=== PATIENT | female | born 1995 | race Caucasian/White ===

== ENCOUNTER 2016-09-30 20:25 | Emergency (ER) | payer MEDICAID, OTHER ==
[~2016-09-30] VITALS: Ht 160 cm; Wt 104.0 kg
[~2016-09-30 20:25] MED LIST: ALBU8.5H3 INH; CIPR500T4 PO; TRAM50TA2 PO
[2016-09-30 21:39] VITALS: Ht 160 cm; Wt 104.0 kg
[2016-09-30] MEDS ORDERED: ACETAMINOPHEN 325 MG TAB PO ONE (23:00)
[2016-09-30 23:06] LABS: URINE BLOOD (Dip) POC Negative (NEGATIVE)
[2016-10-01] MEDS ORDERED: MAG-19 PO
[2016-10-01 00:31] VITALS: BP 115/73; PULSE 86; RESP 18; TEMP 98.6
--- NOTE | 2016-10-01 03:19 | ERD ---
ER Documentation Chief Complaint Date/Time DATE: 10/01/16 TIME: 03:02 Chief Complaint Epigastric pain, left leg shaking, Nausea HPI Pleasant 21-year-old female presents to emergency room today for abdominal pain , nausea, and left leg shakiness. Patient reports abdominal pain started in epigastrium area and now is felt in lower quadrants, patient reports that her left leg started shaking involuntarily today. Patient has been seen by urgent care today diagnosed with GERD treated with Zantac. Patient reports that she is here for reevaluation because abdominal pain has changed in quality now feels crampy and tender. Also has changed in location now is in the lower quadrants, epigastric pain or heartburn not present at this time. Patient denies vomiting, dysuria, hematuria, fever or chills. Patient denies belching, flatulence, diarrhea or constipation. ROS All systems reviewed and are negative except as per history of present illness. Medications Home Meds Active Scripts Magaldrate/Simethicone* (Mylanta*) 355 Ml Susp, 30 ML PO QID Y for GASTROINTESTINAL UPSET, #1 BOTTLE Prov:NICK VILLALOBOS 10/01/16 Tramadol HCl (Tramadol HCl) 50 Mg Tab, 50 MG PO Q4 Y for PAIN, #10 TAB Prov:RICK ANDERSEN PA-C 01/17/15 Ciprofloxacin Hcl* (Ciprofloxacin Hcl*) 500 Mg Tablet, 500 MG PO BID for 7 Days , TAB Prov:RICK ANDERSEN PA-C 01/17/15 Reported Medications Albuterol Sulfate* (Proair HFA*) 8.5 Gm Hfa.aer.ad, 2 PUFF INH Q4H Y for WHEEZING AND SOB, INH 08/01/14 Allergies Allergies: Coded Allergies: No Known Allergies (Verified Allergy, Mild, 09/30/16) PMhx/Soc Medical and Surgical Hx: pt denies Medical Hx, pt denies Surgical Hx History of Surgery: No Anesthesia Reaction: No Hx Neurological Disorder: No Hx Respiratory Disorders: No Hx Cardiac Disorders: No Hx Psychiatric Problems: No Hx Miscellaneous Medical Probl: No Hx Alcohol Use: No Hx Substance Use: No Hx Tobacco Use: No Smoking Status: Never smoker Physical Exam Vitals Vital Signs Date Time Temp Pulse Resp B/P Pulse Ox O2 Delivery O2 Flow Rate FiO2 10/01/16 00:31 98.6 86 18 115/73 97 Room Air 09/30/16 21:39 100.5 122 20 140/93 97 Vitals stable, nursing notes reviewed, Fever reduction effective with Tylenol. Physical Exam Const: No acute distress Head: Atraumatic Eyes: Normal Conjunctiva ENT: Mucous membranes moist Neck: Resp: Clear to auscultation bilaterally Cardio: Regular rate and rhythm, no murmurs Abd: Abdomen symmetric, soft, epigastric tenderness, right upper quadrant tenderness, bilateral lower quadrant tenderness, negative Cox sign. negative CVA tenderness. Skin: Back: No flank tenderness Ext: Neur: Awake and alert Psych: Normal Mood and Affect Results 24 hrs Laboratory Tests Test 09/30/16 23:08 Bedside Urine Blood Negative Bedside Urine Glucose (UA) Negative Bedside Urine Ketones (LAB) Negative Bedside Urine Leukocyte Esterase (L Negative Bedside Urine Nitrite (LAB) Negative Bedside Urine Protein (LAB) Negative Bedside Urine pH (LAB) 5.5 Current Medications Medications (Trade) Dose Ordered Sig/Nicky Route PRN Reason Start Time Stop Time Status Last Admin Dose Admin Acetaminophen (Tylenol Tab) 650 mg ONCE ONCE PO 09/30/16 23:00 09/30/16 23:01 DC 09/30/16 23:11 Interpretation text UA hCG negative for evidence of Urinalysis negative for leukocytosis or nitrates, negative for RBCs. Normal urinalysis Procedures/MDM Pleasant 21-year-old female presents to emergency department for reevaluation of abdominal pain. Patient reports sudden onset of abdominal pain starting in her epigastric area today. Patient was seen and treated at urgent care for GERD symptoms. Patient concerned about infection because of change in symptoms. Urinalysis negative for evidence of infection fever treated with Tylenol. Urinary tract infection or pyelonephritis is not suspected. Abdomen is nonacute, biliary colic, pancreatitis, or cholelithiasis is not suspected. Patient is stable for discharge. Reports improvement of symptoms with Tylenol on reevaluation. I feel patient is a excellent candidate for outpatient therapy and should continue Zantac, prescription of Mylanta provided, continue [id number] Tylenol for generalized fever aches and pains. I have discussed results, and examination findings, and treatment plan with the patient prior to discharge, indication for emergent reevaluation discussed. Side effects of all medication discussed. Patient given opportunity to ask questions, comfort care discussed patient verbalizes understanding, agrees with plan of care.. Departure Diagnosis: Primary Impression: Abdominal pain Condition: Good Patient Instructions: Abdominal Pain Additional Instructions: Call your primary care doctor TOMORROW for an appointment during the next 1-2 days.See the doctor sooner or return here if your condition worsens before your appointment time. NICK VILLALOBOS Oct 01, 2016 03:13
== END 2016-10-01 00:31 | disposition home or self-care (01) ==
LOC: FTE 20:25
DX: R10.13 Epigastric pain (principal)
CPT/HCPCS: 81003; Z7502; Z7610; 99283

== ENCOUNTER 2017-08-07 08:25 | Emergency (ER) | payer OTHER ==
[~2017-08-07] VITALS: Ht 167.6 cm; Wt 105.4 kg
[~2017-08-07 08:25] MED LIST changes: +MAG-19 PO
[2017-08-07 08:32] VITALS: Ht 167.6 cm; Wt 105.4 kg
[2017-08-07] MEDS ORDERED: ACET/BUTAL/CAFF TAB PO ONE (09:30)
--- NOTE | 2017-08-07 10:13 | RADRPT ---
PROCEDURE: XR Chest. CLINICAL INDICATION: Chest pain, cough TECHNIQUE: AP Portable chest. COMPARISON: CR CHEST 08/01/2014 FINDINGS: The cardiomediastinal silhouette is normal. The aorta is normal. No focal consolidation, pleural eff usion or pneumothorax is seen. The osseous structures are intact. IMPRESSION: No radiographic evidence of acute cardiopulmonary disease. Physician Familia Date Time Electronically viewed and signed by Yamileth Israel Physician on 08/07/2017 10:12 CS/
[2017-08-07] MEDS ORDERED: IBUP-1542 PO (10:22)
--- NOTE | 2017-08-07 10:44 | ERD ---
ER Documentation Chief Complaint Chief Complaint HAS A HOFFMAN AND A STABBING SENSATION ON HER CHEST HPI Patient is a 22-year-old female presents ED for concerns of a headache and "stabbing sensation" in her chest. Patient states her headache started yesterday. Patient describes the pain to be in her bilateral temporal regions and radiating to the occipital portion of her head. Patient states she did take ibuprofen last night which did alleviate her headache however it has returned. She states her current headache is a 3 out of 10. Patient denies that this is a worse headache of her life. Patient denies any nausea, vomiting , blurry vision, phonophobia, photophobia, neck pain, neck stiffness, fever or chills. Patient also admits to left ear pain. Patient states 1 week ago she did have a cough. Patient states her cough is completely resolved at this time. Patient states this morning she woke up with chest pain. Patient describes pain to be in her anterior chest. Patient denies any radiation of pain. Patient denies any shortness of breath, left upper extremity pain, left upper extremity pain or loss of consciousness. Patient denies any abdominal pain. Her last menstrual period was on 07-23-17. Patient denies any unilateral leg swelling, or history of DVT/PE, recent travel, recent surgeries or OCP use. ROS All systems reviewed and are negative except as per history of present illness. Medications Home Meds Active Scripts Ibuprofen* (Motrin*) 600 Mg Tab, 600 MG PO Q6, #30 TAB Prov:VAMSI HUNTER PA-C 08/07/17 Magaldrate/Simethicone* (Mylanta*) 355 Ml Susp, 30 ML PO QID Y for GASTROINTESTINAL UPSET, #1 BOTTLE Prov:GRISELDANEILNICK 10/01/16 Tramadol HCl (Tramadol HCl) 50 Mg Tab, 50 MG PO Q4 Y for PAIN, #10 TAB Prov:RICK ANDERSEN PA-C 01/17/15 Ciprofloxacin Hcl* (Ciprofloxacin Hcl*) 500 Mg Tablet, 500 MG PO BID for 7 Days , TAB Prov:RICK ANDERSEN PA-C 01/17/15 Reported Medications Albuterol Sulfate* (Proair HFA*) 8.5 Gm Hfa.aer.ad, 2 PUFF INH Q4H Y for WHEEZING AND SOB, INH 08/01/14 Allergies Allergies: Coded Allergies: No Known Allergies (Verified Allergy, Mild, 09/30/16) PMhx/Soc History of Surgery: No Anesthesia Reaction: No Hx Neurological Disorder: No Hx Respiratory Disorders: No Hx Cardiac Disorders: No Hx Psychiatric Problems: No Hx Miscellaneous Medical Probl: No Hx Alcohol Use: No Hx Substance Use: No Hx Tobacco Use: No Physical Exam Vitals Vital Signs Date Time Temp Pulse Resp B/P Pulse Ox O2 Delivery O2 Flow Rate FiO2 08/07/17 08:32 97.4 70 18 140/88 98 Physical Exam GENERAL: Well-developed, well-nourished female. Appears in no acute distress. HEAD: Normocephalic, atraumatic. No deformities or ecchymosis. EYE: Pupils equal, round, and reactive to light. EOMs intact. No conjunctival erythema. No eye discharge. ENT: External ear without any masses or tenderness. Auditory canals clear bilaterally. TM visualized bilaterally, non-erythematous, non-bulging. Nasal mucosa pink with no discharge. Oropharynx is pink without any tonsillar erythema or exudates. No uvula deviation. No kissing tonsils. NECK: Supple. No meningismus. Normal ROM of the neck. LUNG: Clear to auscultation bilaterally. No rhonchi, wheezing, rales or coarse breath sounds. CHEST: Tender to palpation of the anterior chest wall. Pain is reproducible. HEART: Regular rate and rhythm. No murmurs, rubs or gallops. EXTREMITIES: Equal pulses bilaterally. No peripheral clubbing, cyanosis or edema. No unilateral leg swelling. NEUROLOGIC: Alert and oriented x3, cooperative. Mood and affect appropriate to situation. Cranial nerves II through XII are grossly intact. Normal speech. Motor exam: 5/5 strength in upper and lower extremities. Sensory exam: Sensation intact to light touch on all four extremities. Cerebellar function exam: No dysmetria on [id number] test. Steady gait. No pronator drift. SKIN: Normal color. Warm and dry. No rashes or lesions. Results 24 hrs Current Medications Medications (Trade) Dose Ordered Sig/Nicky Route PRN Reason Start Time Stop Time Status Last Admin Dose Admin Acetaminophen/ Butalbital/ Caffeine (Fioricet) 1 tab ONCE ONCE PO 08/07/17 09:30 08/07/17 09:31 DC 08/07/17 09:34 Procedures/MDM ED COURSE: The patient was stable throughout ED course. I kept the patient and/or family informed of laboratory and diagnostic imaging results throughout the ED course. EKG: Read by Dr. Patel, attending physician. EKG shows normal sinus rhythm at a rate of 69 bpm. No arrhythmias, acute ST elevations or T wave changes were noted. DIAGNOSTIC IMAGING: Read by radiologist. Patient: JOSE DUNACN : 1995 Age: 22 Sex: F MR #: [id number] DOS: 08/07/17 0919 Ordering MD: VAMSI HUNTER PA-C Location: [facility] Room/Bed: PROCEDURE: XR Chest. CLINICAL INDICATION: Chest pain, cough TECHNIQUE: AP Portable chest. COMPARISON: CR CHEST 08/01/2014 FINDINGS: The cardiomediastinal silhouette is normal. The aorta is normal. No focal consolidation, pleural effusion or pneumothorax is seen. The osseous structures are intact. IMPRESSION: No radiographic evidence of acute cardiopulmonary disease. Physician Familia Date Time Electronically viewed and signed by Physician Familia on 08/07/2017 10: 12 CS/ CC: VAMSI HUNTER PA-C PROCEDURES: None. MEDICATIONS GIVEN: Fioricet Patient tolerated medication well with no adverse reactions. Patient reported improvement in pain. MEDICAL DECISION MAKING: This is a 22-year-old female presents ED for concerns of a headache and pain in her chest. Patient does admit to having a cough approximately 1 week ago which is completely resolved at this time. Vital signs were reviewed. Patient was afebrile. Patient is not hypoxic. Patient denied any fevers, neck stiffness, visual changes or LOC. Full neurological exam was normal. Patient was given Fioricet for headache. Patient reported significant alleviation of her pain after receiving this medication. Patient's EKG showed normal sinus rhythm at a rate of 69 bpm. EKG was reviewed by ED attending. Chest x-ray was unremarkable. Patient's PERC score is 0. Low suspicion for PE. At this time, patient's presentation is most consistent with tension headache and chest wall pain. Patient's chest wall pain is likely due to recent coughing that she had. Low suspicion for intra-cranial hemorrhage, meningitis, temporal arteritis, intracranial mass, sinusitis, pneumonia, pneumothorax, pleural effusion, CHF, ACS, pericarditis, arrhythmia. Patient was nontoxic, [id number] prior to discharge. Patient was noted to be on her cell phone talking in the results waiting room without any signs of acute distress. PRESCRIPTIONS: Ibuprofen DISCHARGE: At this time, patient is stable for discharge and outpatient management. I have encouraged the patient to hydrate well. I have instructed the patient to follow- up with his/her primary care physician in 1-2 days. If symptoms persist, patient may need to see a specialist for further examinations and testing. I have instructed the patient to promptly return to the ER at any time for any new or worsening symptoms including increased increased pain, fever, nausea, vomiting, numbness, neck stiffness, visual changes, weakness or LOC. The patient and/or family expressed understanding of and agreement with this plan. All questions were answered. Home care instructions were provided. Patients blood pressure was elevated (>120/80) but appears stable without evidence of hypertensive emergency, hypertensive urgency or end-organ failure. I had discussion with the patient about the risks of hypertension. I have advised the patient to follow up with his/her primary care physician for outpatient monitoring and treatment for hypertension in 2-3 days. I have instructed the patient to return to the ER for any new or worsening symptoms including chest pain, shortness of breath, headache, blurred vision, confusion, nausea, vomiting or LOC. Disclaimer: Inadvertent spelling and grammatical errors are likely due to EHR/ dictation software use and do not reflect on the overall quality of patient care. Also, please note that the electronic time recorded on this note does not necessarily reflect the actual time of the patient encounter. Departure Diagnosis: Primary Impression: Headache Headache type: unspecified Headache chronicity pattern: unspecified pattern Intractability: not intractable Qualified Code: R51 - Nonintractable headache, unspecified chronicity pattern, unspecified headache type Additional Impression: Chest wall pain Condition: Stable Patient Instructions: Self-Care for Headaches, Chest Wall Pain, Costochondritis Additional Instructions: Call your primary care doctor TOMORROW for an appointment during the next 1-2 days.See the doctor sooner or return here if your condition worsens before your appointment time. VAMSI HUNTER PA-C Aug 07, 2017 10:44
== END 2017-08-07 10:58 | disposition home or self-care (01) ==
LOC: FTE 08:25
DX: R51 Headache (principal); R07.89 Other chest pain
CPT/HCPCS: 71010; Z7502; Z7610; 93005

== ENCOUNTER 2018-02-27 21:10 | Emergency (ER) | END 2018-02-28 00:08 | disposition home or self-care (01) ==

== ENCOUNTER 2018-08-03 18:55 | Emergency (ER) | payer OTHER ==
[~2018-08-03] VITALS: Ht 160 cm; Wt 110.0 kg
[~2018-08-03 18:55] MED LIST changes: -ALBU8.5H3 INH; +ALBU8.5H8 INH; +FLUT9.9S NASAL; +IBUP-1542 PO; +PHEN177S43 MT
[2018-08-03 19:06] VITALS: BP 141/84; PULSE 90; RESP 18; Ht 160 cm; Wt 110.0 kg
--- NOTE | 2018-08-03 21:39 | ERD ---
ER Documentation Chief Complaint Chief Complaint headache/lower back, abd pain x 1 week HPI 23-year-old female who presents emergency department with complaints of headache, lower back pain, mild suprapubic pain for about a week. LMP: Stated that it was July 20, 2018. A0. Denies that this is the worst headache of her life, head injury, loss of consciousness, dizziness, neck pain, neck stiffness, throat pain, difficulty swallowing, difficulty breathing lying flat, shoulder pain, chest pain, back pain, abdominal pain, nausea, vomiting, constipation, diarrhea, urinary symptoms, or possibility being , loss of bowel and bladder control, trauma, injury, falls, difficulty walking due to pain, numbness or tingling sensation, calf pain, recent travel, recent major surgery in the last 3 weeks, calf pain, recent long travel, recent exposure to any illness, recent antibiotic use in the last 3 months, fever, chills, seizures. Past medical history: Denies. Surgical history: Denies. Social: Denies smoking, use of alcoholic beverages, use of illegal drugs. ROS All systems reviewed and are negative except as per history of present illness. Medications Home Meds Active Scripts Benzonatate* (Tessalon Perle*) 100 Mg Capsule, 100 MG PO Q8H PRN for COUGH, #15 CAP Prov:PASINEZRUSTY F 08/03/18 Ibuprofen* (Motrin*) 800 Mg Tab, 800 MG PO Q6H PRN for PAIN AND OR ELEVATED TEMP, #30 TAB Prov:PASILAMARZENARUBYAR F 08/03/18 Amoxicillin/Potassium Clav (Amox-Clav 875-125 mg Tablet) 875-125 mg Tab, 1 TAB PO BID for 10 Days, #20 TAB Prov:PASILARUBY IVANAR F 08/03/18 Ibuprofen* (Motrin*) 600 Mg Tab, 600 MG PO Q6, #30 TAB Prov:BRITTANY PAULINO PA-C 02/27/18 Phenol* (Chloraseptic* [place]) 177 Ml [place].pump, 2 SPRAY MT Q2H PRN for SORE THROAT, #1 BOTTLE Prov:BRITTANY PAULINO PA-C 02/27/18 Fluticasone Propionate (Flonase Allergy Relief) 9.9 Ml [place].susp, 1 SPRAY NASAL BID, #1 BOTTLE TO EACH NOSTRIL Prov:BRITTANY PAULINO PA-C 02/27/18 Ibuprofen* (Motrin*) 600 Mg Tab, 600 MG PO Q6, #30 TAB Prov:VAMSI HUNTER PA-C 08/07/17 Magaldrate/Simethicone* (Mylanta*) 355 Ml Susp, 30 ML PO QID PRN for GASTROINTESTINAL UPSET, #1 BOTTLE Prov:GRISELDA,MELODY 10/01/16 Tramadol HCl (Tramadol HCl) 50 Mg Tab, 50 MG PO Q4 PRN for PAIN, #10 TAB Prov:RICK ANDERSEN PA-C 01/17/15 Ciprofloxacin Hcl* (Ciprofloxacin Hcl*) 500 Mg Tablet, 500 MG PO BID for 7 Days, TAB Prov:RICK ANDERSEN PA-C 01/17/15 Reported Medications Albuterol Sulfate* (Proair HFA*) 8.5 Gm Hfa.aer.ad, 2 PUFF INH Q4H PRN for WHEEZING AND SOB, INH 08/01/14 Allergies Allergies: Coded Allergies: No Known Allergies (Verified Allergy, Mild, 09/30/16) PMhx/Soc History of Surgery: No Anesthesia Reaction: No Hx Neurological Disorder: No Hx Respiratory Disorders: No Hx Cardiac Disorders: No Hx Psychiatric Problems: No Hx Miscellaneous Medical Probl: No Hx Alcohol Use: No Hx Substance Use: No Hx Tobacco Use: No Smoking Status: Never smoker Physical Exam Vitals Vital Signs Date Temp Pulse Resp B/P (MAP) Pulse Ox O2 O2 Flow FiO2 Time Delivery Rate 08/03/18 98.0 90 18 141/84 100 19:06 (103) Physical Exam Const: No acute distress Head: Atraumatic Eyes: Normal Conjunctiva ENT: Normal External Ears, Nose and Mouth. Bilateral ears: TM is erythematous. No bleeding. No discharge with no mastoid tenderness. Nose: Midline without deviation. There is mild maxillary sinus tenderness to palpation. Throat: Uvula is midline and nondisplaced. Tonsils are +2 without redness and without exudates. Tolerating secretions. Patent airway. Speaks full and clear sentences. Neck: Full range of motion. No meningismus. No nuchal rigidity. No signs of meningeal irritation. Resp: Clear to auscultation bilaterally Cardio: Regular rate and rhythm, no murmurs Abd: Soft, non tender, non distended. Normal bowel sounds Skin: No petechiae or rashes Back: No midline or flank tenderness Ext: No cyanosis, or edema Neur: Awake and alert. No neurological deficits. Psych: Normal Mood and Affect Results 24 hrs Laboratory Tests Test 08/03/18 21:00 08/03/18 21:29 Urine Color YELLOW Urine Clarity CLEAR Urine pH 6.0 Urine Specific [place] 1.012 Urine Ketones NEGATIVE mg/dL Urine Nitrite NEGATIVE mg/dL Urine Bilirubin NEGATIVE mg/dL Urine Urobilinogen NEGATIVE mg/dL Urine Leukocyte Esterase NEGATIVE [place]/ul Urine Hemoglobin NEGATIVE mg/dL Urine Glucose NEGATIVE mg/dL Urine Total Protein NEGATIVE mg/dl POC Beta HCG, Qualitative NEGATIVE Procedures/MDM Diagnostic tests: POC urine : Negative. Urinalysis: Reviewed. Culture urine: Sent. Treatment: Not applicable. Re-evaluation: Denies headache, dizziness. No abdominal tenderness. No neurological deficits. Differential diagnosis I have low suspicion for subarachnoid hemorrhage, sepsis, meningitis, peritonsillar abscess, mastoiditis, pneumonia, pyelonephritis, obstructing kidney stone, appendicitis. Final diagnosis: Sinusitis. Prescription: Motrin. Tylenol. Augmentin. Follow-up with PCP in the next 24-48 hours. Come back here in the emergency department for any new symptoms or any worsening symptoms. All questions and concerns were answered. Patient and family members verbalized understanding and agreed with plan of care. Hemodynamically stable on discharge. Departure Diagnosis: Primary Impression: Sinusitis Condition: Stable Additional Instructions: Follow-up with PCP in the next 24-48 hours. Come back here in the emergency department for any new symptoms or any worsening symptoms. RUSTY QUIROZ Aug 03, 2018 21:39
[2018-08-03] MEDS ORDERED: AMOX1TAB10 PO (22:54)
[2018-08-03] MEDS ORDERED: IBUP800T48 PO (22:55)
[2018-08-03] MEDS ORDERED: BENZ-6 PO (22:55)
[2018-08-07] MEDS ORDERED: CYCL10TA7 PO (05:46)
[2018-08-07] MEDS ORDERED: IBUP800T48 PO (05:46)
== END 2018-08-03 23:10 | disposition home or self-care (01) ==
LOC: FTE 18:55
DX: J32.9 Chronic sinusitis, unspecified (principal); R10.9 Unspecified abdominal pain
CPT/HCPCS: 81003; 81025; 87086; 99283

== ENCOUNTER 2018-08-07 05:05 | Emergency (ER) | END 2018-08-07 05:56 | disposition home or self-care (01) ==